=== PATIENT | female | born 1955 | race African-American/Black ===

== ENCOUNTER 2018-10-31 09:34 | Emergency (ER) | payer OTHER ==
[~2018-10-31] VITALS: Ht 170.2 cm; Wt 94.3 kg
[2018-10-31] MEDS ORDERED: NORVASC10 MG (09:49)
== END 2018-10-31 12:24 | disposition home or self-care (01) ==
LOC: ER 09:34
DX: J11.1 Influenza due to unidentified influenza virus with other respiratory manifestations (principal)